=== PATIENT | female | born 1975 | race Caucasian/White ===

== ENCOUNTER 2022-07-18 16:42 | Emergency (ER) | payer SELFPAY ==
[~2022-07-18] VITALS: Ht 154 cm; Wt 118.0 kg
--- NOTE | 2022-07-18 16:45 | ED General ---
General Stated Complaint: HI BP,HARD TO BREATH, TIGHTENESS IN CHEST, History of Present Illness Date Seen by Provider: Jul 18, 2022 Time Seen by Provider: 16:45 Initial Comments 47-year-old female presents with chest tightness, hard time breathing. She had this a couple days ago, went away and she had again today. She feels like she is a little bit feverish when it happens. She reports she had little bit of pain in the left side of her back and, not the one to the front of her chest when it happened a couple days ago but none today. When she presented to urgent care she was found to have elevated blood pressure. She is unsure if she has a history of elevated blood pressure as she "does not go to the doctor" she she takes Xanax for anxiety and sertraline for depression and anxiety. She denies any other medical conditions or medications. Allergies and Home Medications Allergies Coded Allergies: No Known Drug Allergies (Unverified , 07/18/22) Patient Home Medication List Home Medication List Reviewed: Yes Lisinopril (Lisinopril) 10 Mg Tablet, 10 MG PO DAILY Prescribed by: LOGAN STUART on 07/18/222003 Review of Systems Review of Systems Constitutional: fever, malaise Respiratory: see HPI, short of breath Cardiovascular: see HPI; No edema, No syncope Gastrointestinal: no symptoms reported Genitourinary: no symptoms reported Musculoskeletal: no symptoms reported Skin: no symptoms reported Psychiatric/Neurological: No Symptoms Reported Hematologic/Lymphatic: No Symptoms Reported Physical Exam Vital Signs Vital Signs - First Documented 07/18/22 17:07 Temp 36.5 Pulse 91 Resp 20 Pulse Ox 96 O2 Delivery Room Air Capillary Refill : Height, Weight, BMI Height: '" Weight: lbs. oz. kg; BMI Method: General Appearance: Obese HEENT: Pharynx Normal, Moist Mucous Membranes Neck: Non Tender, Supple Respiratory: Lungs Clear, Normal Breath Sounds Cardiovascular: Regular Rate, Rhythm, No Edema Gastrointestinal: Non Tender, Soft Extremity: Normal Capillary Refill, Normal Inspection, Normal Range of Motion Neurologic/Psychiatric: Alert, Oriented x3, Normal Mood/Affect Skin: Normal Color, Warm/Dry Progress/Results/Core Measures Suspected Sepsis SIRS Temperature: Pulse: Respiratory Rate: Laboratory Tests 07/18/22 17:00: White Blood Count 18.9H Blood Pressure / Mean: Laboratory Tests 07/18/22 17:00: Creatinine 0.57L, Platelet Count 291, Total Bilirubin 0.3 Results/Orders Lab Results Laboratory Tests Test 07/18/22 17:00 Range/Units White Blood Count 18.9 H 4.3-11.0 10^3/uL Red Blood Count 4.82 3.80-5.11 10^6/uL Hemoglobin 13.0 11.5-16.0 g/dL Hematocrit 39 35-52 % Mean Corpuscular Volume 80 80-99 fL Mean Corpuscular Hemoglobin 27 25-34 pg Mean Corpuscular Hemoglobin Concent 34 32-36 g/dL Red Cell Distribution Width 13.3 10.0-14.5 % Platelet Count 291 130-400 10^3/uL Mean Platelet Volume 9.9 9.0-12.2 fL Immature Granulocyte % (Auto) 1 % Neutrophils (%) (Auto) 82 H 42-75 % Lymphocytes (%) (Auto) 10 L 12-44 % Monocytes (%) (Auto) 5 0-12 % Eosinophils (%) (Auto) 2 0-10 % Basophils (%) (Auto) 0 0-10 % Neutrophils # (Auto) 15.5 H 1.8-7.8 10^3/uL Lymphocytes # (Auto) 1.9 1.0-4.0 10^3/uL Monocytes # (Auto) 1.0 0.0-1.0 10^3/uL Eosinophils # (Auto) 0.4 H 0.0-0.3 10^3/uL Basophils # (Auto) 0.0 0.0-0.1 10^3/uL Immature Granulocyte # (Auto) 0.1 0.0-0.1 10^3/uL Neutrophils % (Manual) 65 % Lymphocytes % (Manual) 13 % Monocytes % (Manual) 6 % Eosinophils % (Manual) 2 % Band Neutrophils 14 % Platelet Estimate NORMAL Blood Morphology Comment NORMAL D-Dimer 2.68 H 0.00-0.49 UG/ML Sodium Level 137 135-145 MMOL/L Potassium Level 3.2 L 3.6-5.0 MMOL/L Chloride Level 102 98-107 MMOL/L Carbon Dioxide Level 22 21-32 MMOL/L Anion Gap 13 5-14 MMOL/L Blood Urea Nitrogen 8 7-18 MG/DL Creatinine 0.57 L 0.60-1.30 MG/DL Estimat Glomerular Filtration Rate 114 BUN/Creatinine Ratio 14 Glucose Level 116 H 70-105 MG/DL Calcium Level 8.9 8.5-10.1 MG/DL Corrected Calcium 8.7 8.5-10.1 MG/DL Magnesium Level 1.7 1.6-2.4 MG/DL Total Bilirubin 0.3 0.1-1.0 MG/DL Aspartate Amino Transf (AST/SGOT) 19 5-34 U/L Alanine Aminotransferase (ALT/SGPT) 13 0-55 U/L Alkaline Phosphatase 92 40-136 U/L Troponin I < 0.30 <0.30 NG/ML C-Reactive Protein 2.06 H <0.50 MG/DL Pro-B-Type Natriuretic Peptide 771.3 H <125.0 PG/ML Total Protein 8.0 6.4-8.2 GM/DL Albumin 4.3 3.2-4.5 GM/DL Influenza Type A (RT-PCR) Not Detected Not Detecte Influenza Type B (RT-PCR) Not Detected Not Detecte SARS-CoV-2 RNA (RT-PCR) Not Detected Not Detecte My Orders Orders - STUART,LOGAN L DO Cbc With Automated Diff (07/18/22 16:51) Comprehensive Metabolic Panel (07/18/22 16:51) Fibrin Degradation Products (07/18/22 16:51) Magnesium (07/18/22 16:51) Influenza A And B By Pcr (07/18/22 16:51) Crp Fs (07/18/22 16:51) Troponin I Fs (07/18/22 16:51) Covid 19 Inhouse Test (07/18/22 16:51) Ed Iv/Invasive Line Start (07/18/22 16:51) Ekg Tracing (07/18/22 16:51) Monitor-Rhythm Ecg Trace Only (07/18/22 16:51) Probnp Fs (07/18/22 16:51) Manual Differential (07/18/22 17:00) Hydralazine Injection (Apresoline Inject (07/18/22 17:30) Chest Pa/Lat (2 View) (07/18/22 17:31) Enalaprilat Injection (Vasotec Injection (07/18/22 18:45) Ct Angio Chest W (R/O Pe) (07/18/22 ) Iohexol Injection (Omnipaque 350 Mg/Ml 1 (07/18/22 19:00) Received Contrast (Hold Metformin- Contr (07/18/22 19:00) Ns (Ivpb) (Sodium Chloride 0.9% Ivpb Bag (07/18/22 19:00) Furosemide Injection (Lasix Injection) (07/18/22 19:15) Lisinopril Tablet (Zestril Tablet) (07/18/22 19:45) Ed Iv/Invasive Line Start (07/18/22 19:56) Ns Iv 500 Ml (Sodium Chloride 0.9%) (07/18/22 20:00) Medications Given in ED Current Medications Medications Dose Ordered Sig/Liang Route Start Time Stop Time Status Last Admin Dose Admin Enalaprilat 2.5 mg ONCE ONCE IV 07/18/22 18:45 07/18/22 18:46 DC 07/18/22 19:07 2.5 MG Furosemide 40 mg ONCE ONCE IVP 07/18/22 19:15 07/18/22 19:16 DC 07/18/22 19:07 40 MG Hydralazine HCl 10 mg ONCE ONCE IV 07/18/22 17:30 07/18/22 17:31 DC 07/18/22 17:50 10 MG Iohexol 100 ml ONCE ONCE IV 07/18/22 19:00 07/18/22 19:01 DC 07/18/22 18:54 100 ML Sodium Chloride 100 ml ONCE ONCE IV 07/18/22 19:00 07/18/22 19:01 DC 07/18/22 18:55 100 ML Sodium Chloride 500 ml @ 0 mls/hr Q0M ONCE IV 07/18/22 20:00 07/18/22 20:01 DC 07/18/22 20:02 0 MLS/HR Vital Signs/I&O 07/18/22 17:07 Temp 36.5 Pulse 91 Resp 20 B/P (MAP) Pulse Ox 96 O2 Delivery Room Air Capillary Refill : Progress Note : Progress Note Patient is diagnostic studies were ordered reviewed and interpreted by me. Patient had elevated white count, negative troponin, she did have elevated D- dimer. Along with an elevated BNP. Patient is x-ray shows some cardiomegaly questionable edema. Due to patient having her symptoms of shortness of breath and elevated D-dimer CTA was obtained that showed no significant acute findings. Patient's blood pressure was extremely elevated in the 220s and up when she initially arrived. She was first given hydralazine with minimal relief or response. Patient was then given enalapril IV along with some Lasix. She had a tremendous response to this and her blood pressure dropped into the 150s. She did have some mild initial feeling of not well but then that resolved. I suspect that this is likely due to her having a longstanding severe hypertension that was undiagnosed. Patient's shortness of breath felt significantly better. Due to patient's response to the enalapril and feeling significantly better she was monitored for another hour or so in the ER and did well. I did give her a small bolus following the Lasix to ensure would not drop her blood pressure too far. Patient will be prescribed lisinopril 10 mg for initial dosing to take daily starting in the morning. Patient will establish care with a primary care provider for further outpatient management. We did discuss admission but due to her response with joint decision-making decided to forego that at this time. She will return to the ER with any concerns or worsening of her symptoms. Patient's EKG showed normal sinus rhythm with some nonspecific ST and T wave changes likely due to her hypertension, ventricular rate 88 MO 150 QRS 99 QTc 402. There are no acute ST elevation or changes noted. Critical care time approximately 60 minutes. Patient's increased risk of some additional morbidity and mobility due with her diagnosis and treatment being significantly limited by social determinants of health including poor compliance previously, no primary care provider. Along with other social determinants of health. Patient was stable and discharged ECG Initial ECG Impression Date: Jul 18, 2022 Initial ECG Impression Time: 16:54 Initial ECG Rate: 88 Initial ECG Rhythm: Normal Sinus Initial ECG Intervals MO 150, QRS 99, QTC 402 Initial ECG Impression: Nonspecific Changes Comment no acute st changes or elevation Diagnostic Imaging Diagonstic Imaging: Xray Plain Films/CT/US/NM/MRI: chest Comments Date of Exam:07/18/22 CHEST PA/LAT (2 VIEW) INDICATION: Hypertension. Shortness of air. COMPARISON: None. FINDINGS: Frontal and lateral views of the chest were obtained and show mild cardiomegaly and mild prominence of the pulmonary vasculature. Lungs also show diffuse mild prominence of the interstitium. There may be trace left basilar effusion. There is no large effusion on the right. No pneumothorax is seen on either side. Osseous structures show no gross acute abnormality. IMPRESSION: Mild cardiomegaly with probable interstitial pulmonary edema and small left basilar effusion. Reviewed: Reviewed by Me, Reviewed/Discussed Diagonstic Imaging: CT Plain Films/CT/US/NM/MRI: chest Comments Date of Exam:07/18/22 CT ANGIO CHEST W (R/O PE) INDICATION: Shortness of air. COMPARISON: None. TECHNIQUE: Routine postcontrast CTA of the chest was performed. Contrast was injected intravenously and timed for optimal opacification of the arterial structures. Multiplanar and 3D reformats were also created and reviewed. Auto Exposure Controls were utilized during the CT exam to meet ALARA standards for radiation dose reduction. FINDINGS: No abnormal intraluminal filling defect is seen within the pulmonary arteries to the 1st subsegmental division. Thoracic aorta is normal in course and caliber. By NASCET criteria, there is no focal significant stenosis. There is no evidence of dissection or aneurysm. No pathologically enlarged or morphologically abnormal adenopathy is seen within the mediastinum, mike or axilla. Evaluation of the lung bourne demonstrates small left effusion. There is also diffuse septal thickening with areas of groundglass density. Findings are suggestive of pulmonary edema. Punctate juxtapleural micronodule of the anterolateral margins the right upper lobe is identified and measures 3 mm (image 65, series 7). Osseous structures show no acute abnormality. No lytic or blastic bony lesion is seen. Included portions of the upper abdomen are unremarkable as well. IMPRESSION: 1. No acute pulmonary embolus. 2. Mild cardiomegaly with probable pulmonary edema. 3. Small left effusion. 4. Not mentioned above, there is dilatation of the main pulmonary arterial trunk, as it measures 3.4 cm. Findings can be seen with pulmonary hypertension. Departure Impression Primary Impression: Severe uncontrolled hypertension Disposition: 01 HOME, SELF-CARE Condition: Stable Departure-Patient Inst. Patient Instructions: High Blood Pressure Emergencies, High Blood Pressure ED Add. Discharge Instructions: Please start your lisinopril in the morning. Please establish care with a primary care provider for further outpatient management of your high blood pressure along with other medical management. Return to ER with any concerns Scripts Lisinopril (Lisinopril) 10 Mg Tablet 10 MG PO DAILY, #30 TAB Prov: LOGAN STUART DO 07/18/22 LOGAN STUART DO Jul 18, 2022 16:45
[2022-07-18 17:11] LABS: BASOPHILS % (AUTO) 0 % (0-10); EOSINOPHILS # (AUTO) 0.4 10^3/uL (0.0-0.3); EOSINOPHILS % (AUTO) 2 % (0-10); HEMATOCRIT 39 % (35-52); LYMPHOCYTES # (AUTO) 1.9 10^3/uL (1.0-4.0); LYMPHOCYTES % (AUTO) 10 % (12-44); MEAN CORPUSCULAR HEMOGLOBIN 27 pg (25-34); MEAN CORPUSCULAR HGB CONC 34 g/dL (32-36); MEAN CORPUSCULAR VOLUME 80 fL (80-99); MEAN PLATELET VOLUME 9.9 fL (9.0-12.2); MONOCYTES % (AUTO) 5 % (0-12); NEUTROPHILS # (AUTO) 15.5 10^3/uL (1.8-7.8); NEUTROPHILS % (AUTO) 82 % (42-75); PLATELET COUNT 291 10^3/uL (130-400); WHITE BLOOD COUNT 18.9 10^3/uL (4.3-11.0)
[2022-07-18] MEDS ORDERED: hydrALAZINE (APESOLINE) 20 MG/ML VIAL IV ONE (17:30)
[2022-07-18 17:50] LABS: ALANINE AMINOTRANSFERASE 13 U/L (0-55); ALBUMIN 4.3 GM/DL (3.2-4.5); ALKALINE PHOSPHATASE 92 U/L (40-136); BILIRUBIN,TOTAL 0.3 MG/DL (0.1-1.0); BUN/CREATININE RATIO 14; CALCIUM 8.9 MG/DL (8.5-10.1); CARBON DIOXIDE 22 MMOL/L (21-32); CHLORIDE 102 MMOL/L (98-107); CREATININE SERUM 0.57 MG/DL (0.60-1.30); GFR ESTIMATED 114; GLUCOSE 116 MG/DL (70-105); MAGNESIUM 1.7 MG/DL (1.6-2.4); POTASSIUM 3.2 MMOL/L (3.6-5.0); SODIUM 137 MMOL/L (135-145)
[2022-07-18 17:58] LABS: BAND NEUTROPHILS 14 %; EOSINOPHILS % (MANUAL) 2 %; LYMPHOCYTES % (MANUAL) 13 %; MONOCYTES % (MANUAL) 6 %; NEUTROPHILS % (MANUAL) 65 %; PLATELET ESTIMATE NORMAL; RBC MORPH NORMAL
--- NOTE | 2022-07-18 18:05 | Diagnostic Imaging Report ---
INDICATION: Hypertension. Shortness of air. COMPARISON: None. FINDINGS: Frontal and lateral views of the chest were obtained and show mild cardiomegaly and mild prominence of the pulmonary vasculature. Lungs also show diffuse mild prominence of the interstitium. There may be trace left basilar effusion. There is no large effusion on the right. No pneumothorax is seen on either side. Osseous structures show no gross acute abnormality. IMPRESSION: Mild cardiomegaly with probable interstitial pulmonary edema and small left basilar effusion. Dictated by: Dictated on workstation # [id number]
[2022-07-18] MEDS ORDERED: ENALAPRILAT 2.5 MG/2 ML (VASOTEC) VIAL IV ONE (18:45)
[2022-07-18] MEDS ORDERED: IOHEXOL 350 MG/ML 100 ML (OMNIPAQUE 350) VIAL IV ONE (19:00)
[2022-07-18] MEDS ORDERED: NS 100 ML (IVPB) BAG IV ONE (19:00)
[2022-07-18] MEDS ORDERED: HOLD METFORMIN - RECEIVED CONTRAST 20 ML VIAL IV SCH (19:00)
[2022-07-18] MEDS ORDERED: FUROSEMIDE 40 MG/4 ML INJ (LASIX) IVP ONE (19:15)
--- NOTE | 2022-07-18 19:22 | Diagnostic Imaging Report ---
INDICATION: Shortness of air. COMPARISON: None. TECHNIQUE: Routine postcontrast CTA of the chest was performed. Contrast was injected intravenously and timed for optimal opacification of the arterial structures. Multiplanar and 3D reformats were also created and reviewed. Auto Exposure Controls were utilized during the CT exam to meet ALARA standards for radiation dose reduction. FINDINGS: No abnormal intraluminal filling defect is seen within the pulmonary arteries to the 1st subsegmental division. Thoracic aorta is normal in course and caliber. By NASCET criteria, there is no focal significant stenosis. There is no evidence of dissection or aneurysm. No pathologically enlarged or morphologically abnormal adenopathy is seen within the mediastinum, mike or axilla. Evaluation of the lung bourne demonstrates small left effusion. There is also diffuse septal thickening with areas of groundglass density. Findings are suggestive of pulmonary edema. Punctate juxtapleural micronodule of the anterolateral margins the right upper lobe is identified and measures 3 mm (image 65, series 7). Osseous structures show no acute abnormality. No lytic or blastic bony lesion is seen. Included portions of the upper abdomen are unremarkable as well. IMPRESSION: 1. No acute pulmonary embolus. 2. Mild cardiomegaly with probable pulmonary edema. 3. Small left effusion. 4. Not mentioned above, there is dilatation of the main pulmonary arterial trunk, as it measures 3.4 cm. Findings can be seen with pulmonary hypertension. Dictated by: Dictated on workstation # [id number]
[2022-07-18] MEDS ORDERED: lisINopril 10 MG (PRINIVIL) TABLET PO ONE (19:45)
[2022-07-18] MEDS ORDERED: NS IV 500 ML 500 ML IV ONE (20:00)
[2022-07-18] MEDS ORDERED: LISI10TA25 PO (20:04)
[2022-07-18 20:37] VITALS: BP 155/98
== END 2022-07-18 20:39 | disposition home or self-care (01) ==
LOC: ER FS 16:46
DX: I11.9 Hypertensive heart disease without heart failure (principal); F41.9 Anxiety disorder, unspecified; F32.A Depression, unspecified; D72.829 Elevated white blood cell count, unspecified; R79.89 Other specified abnormal findings of blood chemistry; R79.1 Abnormal coagulation profile; Z79.899 Other long term (current) drug therapy; Z20.822 Contact with and (suspected) exposure to COVID-19
CPT/HCPCS: 36415; 71046; 71275; 80053; 83735; 83880; 84484; 85007; 85027; 85379; 86141; 87636; 93005; 93041